=== PATIENT | male | born 1965 | race Caucasian/White ===

== ENCOUNTER 2018-07-08 10:20 | Emergency (ER) | payer MEDICAID ==
[~2018-07-08] VITALS: Ht 175.3 cm; Wt 73.7 kg
[2018-07-08 10:27] VITALS: Ht 175.3 cm; Wt 73.7 kg
[2018-07-08 10:50] LABS: microscopic required? NO
[2018-07-08 11:05] LABS: CALCIUM 8.7 mg/dL (8.5-10.1); CARBON DIOXIDE 26.3 mmol/L (21-32); CHLORIDE SERUM 103 mmol/L (98-107); CREATININE SERUM 0.8 mg/dL (0.7-1.3); GFR1 > 60 mL/min; GLUCOSE SERUM 179 mg/dL (74-106); SODIUM SERUM 137 mmol/L (136-145)
[2018-07-08 11:08] LABS: ALBUMIN 4.1 g/dL (3.4-5.0); ALKALINE PHOSPHATASE 76 U/L (46-116); ALT/SGPT 19 U/L (16-63); AST/SGOT 13 U/L (15-37); BILIRUBIN TOTAL 0.7 mg/dL (0.20-1.00); LIPASE 98 IU/L (73-393); TOTAL PROTEIN, SERUM 7.1 g/dL (6.4-8.2)
[2018-07-08 11:10] LABS: BASOPHIL % 0.8 % (0-2); PLATELET COUNT 173 x10^3mcL (130-400); RED CELL DISTRIBUTION WIDTH 12.6 % (11.5-14.5)
[2018-07-08 11:16] LABS: UA SPECIFIC GRAVITY >=1.030 (1.005-1.035); urine erythrocyte NEGATIVE (NEGATIVE)
[2018-07-08 12:28] VITALS: BP 144/88
== END 2018-07-08 12:28 | disposition home or self-care (01) ==
LOC: ED 10:20
PROVIDERS: Emergency Medicine
DX: K80.50 Calculus of bile duct without cholangitis or cholecystitis without obstruction (principal); K80.80 Other cholelithiasis without obstruction; R73.03 Prediabetes
CPT/HCPCS: 36415; J1885; Q0092

== ENCOUNTER → 2018-07-25 | Outpatient (CLI) | payer MEDICAID ==
[2018-07-25 18:10] LABS: ALKALINE PHOSPHATASE 102 U/L (46-116); ALT/SGPT 14 U/L (16-63); AST/SGOT 11 U/L (15-37); BILIRUBIN TOTAL 0.58 mg/dL (0.20-1.00); CALCIUM 8.8 mg/dL (8.5-10.1); CARBON DIOXIDE 31.5 mmol/L (21-32); CHLORIDE SERUM 107 mmol/L (98-107); GFR1 > 60 mL/min; GLUCOSE SERUM 126 mg/dL (74-106); POTASSIUM SERUM 3.9 mmol/L (3.5-5.1); SODIUM SERUM 141 mmol/L (136-145)
== END | disposition home or self-care (01) ==
LOC: LB 17:35
PROVIDERS: Internal Medicine Gastroenterology
DX: R63.4 Abnormal weight loss (principal)

== ENCOUNTER → 2018-07-27 | Outpatient (CLI) | payer MEDICAID | END | disposition home or self-care (01) | LOC: CT 08:29 | PROC: BW211ZZ Computerized Tomography (CT Scan) of Abdomen and Pelvis using Low Osmolar Contrast (ICD-10-PCS; principal; 2018-07-27) | DX: R63.4 Abnormal weight loss (principal) ==

== ENCOUNTER 2018-08-04 06:30 | Day surgery (SDC) | payer MEDICAID ==
[~2018-08-04] VITALS: Ht 167.6 cm; Wt 73.0 kg
[2018-08-04 06:59] VITALS: BP 129/75
[2018-08-04 09:56] VITALS: BP 120/75
== END 2018-08-04 09:45 | disposition home or self-care (01) ==
LOC: DS 06:30 → OR 07:30 → GI 07:30 → DS 09:45
PROVIDERS: Internal Medicine Gastroenterology
PROC: 0DB68ZX Excision of Stomach, Via Natural or Artificial Opening Endoscopic, Diagnostic (ICD-10-PCS; principal; 2018-08-04 07:30)
PROC: 0DJD8ZZ Inspection of Lower Intestinal Tract, Via Natural or Artificial Opening Endoscopic (ICD-10-PCS; 2018-08-04 07:30)
DX: R63.4 Abnormal weight loss (principal)
CPT/HCPCS: 43235; 45378; J1200; J1610; J2250; J2310; J3010; J3490

== ENCOUNTER 2019-01-16 11:10 | Emergency (ER) | payer OTHER ==
[~2019-01-16] VITALS: Ht 175.3 cm; Wt 75.7 kg
[2019-01-16 11:21] VITALS: BP 139/72; Ht 175.3 cm; Wt 75.7 kg
== END 2019-01-16 13:06 | disposition home or self-care (01) ==
LOC: ED 11:10
DX: H61.21 Impacted cerumen, right ear (principal)

== ENCOUNTER 2019-06-28 16:46 | Emergency (ER) | payer OTHER ==
[~2019-06-28] VITALS: Ht 170.2 cm; Wt 82.1 kg
[2019-06-28 17:31] VITALS: Ht 170.2 cm; Wt 82.1 kg
[2019-06-28 21:14] VITALS: BP 140/81
== END 2019-06-28 20:56 | disposition home or self-care (01) ==
LOC: ED 16:46
DX: S01.411A Laceration without foreign body of right cheek and temporomandibular area, initial encounter (principal); W45.8XXA Other foreign body or object entering through skin, initial encounter; Y93.89 Activity, other specified; Y92.89 Other specified places as the place of occurrence of the external cause; Y99.8 Other external cause status
CPT/HCPCS: 90715; J2001